=== PATIENT | male | born 1990 | race Caucasian/White ===

== ENCOUNTER → 2020-02-29 | Outpatient (REF) | payer OTHER ==
[2020-03-07 14:47] LABS: SEMEN APPEARANCE OPAQUE (OPAQUE); SEMEN VISCOSITY VISCOUS (LIQUID); SEMEN VOLUME 3.5 ml (2.0-5.0); SEMEN pH 8.5 (7.0-8.0)
[2020-03-07 14:48] LABS: WBC CONCENTRATION <=1 M/ml (<=1 M/ml)
== END ==
LOC: M LAB REF 14:41
PROVIDERS: ATTEND Obstetrics & Gynecology
DX: N46.11 Organic oligospermia (principal)

== ENCOUNTER 2020-04-01 23:59 | Emergency (ER) | payer OTHER, SELFPAY ==
[~2020-04-01] VITALS: Ht 180.3 cm; Wt 90.6 kg
[2020-04-02] MEDS ORDERED: IBUP-1022 PO (00:21)
[2020-04-02] MEDS ORDERED: PRED20TA PO (01:57)
[2020-04-02] MEDS ORDERED: ALBUTEROL 90 MCG/ACT 8GM HFA INHALER INH ONE (02:00)
[2020-04-02] MEDS ORDERED: predniSONE 20 MG TAB PO ONE (02:00)
--- NOTE | 2020-04-02 02:25 | REPVR ---
PROCEDURE INFORMATION: Exam: XR Chest, 2 Views Exam date and time: 04/02/2020 1:54 AM Age: 30 years old Clinical indication: Other: SOB; Additional info: Shortness of breath TECHNIQUE: Imaging protocol: XR of the chest Views: 2 views. COMPARISON: No relevant prior studies available. FINDINGS: Lungs: Unremarkable. No consolidation. Pleural space: Unremarkable. No pleural effusion. No pneumothorax. Heart/Mediastinum: Unremarkable. No cardiomegaly. Bones/joints: Unremarkable. IMPRESSION: Negative chest. Electronically signed by: Mukesh Del Valle On 04/02/2020 02:25:28 AM
[2020-04-02 03:14] VITALS: BP 128/63
== END 2020-04-02 03:22 | disposition home or self-care (01) ==
LOC: M ED 23:59
DX: B34.8 Other viral infections of unspecified site (principal); R06.02 Shortness of breath

== ENCOUNTER 2020-10-26 12:27 | Emergency (ER) | payer OTHER ==
[~2020-10-26] VITALS: Ht 180.3 cm; Wt 76.8 kg
[~2020-10-26 12:27] MED LIST: IBUP-1022 PO; PRED20TA PO
[2020-10-26 12:28] VITALS: BP 122/65
[2020-10-26] MEDS ORDERED: GABAPENTIN 300 MG CAP PO ONE (16:05)
[2020-10-26] MEDS ORDERED: IBUP80TA PO (16:08)
[2020-10-26] MEDS ORDERED: GABA-282 PO (16:08)
== END 2020-10-26 16:20 | disposition home or self-care (01) ==
LOC: M ED 12:27
DX: G89.29 Other chronic pain (principal); M54.5 Low back pain; M51.37 Other intervertebral disc degeneration, lumbosacral region; F41.9 Anxiety disorder, unspecified; Z79.899 Other long term (current) drug therapy

== ENCOUNTER → 2022-11-24 | Outpatient (CLI) | payer OTHER ==
[~2022-11-24] MED LIST changes: +GABA-282 PO; +IBUP80TA PO
== END ==
LOC: M PLAIMG 12:54
PROVIDERS: ATTEND Nurse Practitioner Family
DX: M54.16 Radiculopathy, lumbar region (principal)

== ENCOUNTER 2023-06-11 15:15 | Emergency (ER) | payer OTHER ==
[~2023-06-11] VITALS: Ht 180.3 cm; Wt 95.1 kg
[2023-06-11 15:16] VITALS: TEMP 98.7
[2023-06-11] MEDS: NS 1,000 ML IV ONE ×2 (15:40→15:43)
[2023-06-11 15:56] LABS: BASO % 0.5 % (0.0-1.0); EOS % 0.5 % (0.0-3.0); HEMATOCRIT 48.9 % (42.0-52.0); HEMOGLOBIN 17.2 g/dl (13.5-17.5); LYMPH # 1.4 10^3/uL (1.5-5.0); LYMPH % 16.6 % (24.0-44.0); MEAN CORPUSCULAR HEMOGLOBIN 30.8 pg (27.0-33.0); MEAN CORPUSCULAR HGB CONC 35.2 g/dl (32.0-36.5); MEAN CORPUSCULAR VOLUME 87.6 fl (80.0-96.0); MONO # 0.4 10^3/uL (0.0-0.8); MONO % 4.9 % (2.0-8.0); NEUTROPHILS # 6.4 10^3/uL (1.5-8.5); PLATELET COUNT, AUTOMATED 309 10^3/uL (150-450); RED BLOOD COUNT 5.58 10^6/uL (4.30-6.10); WHITE BLOOD COUNT 8.3 10^3/uL (4.0-10.0)
[2023-06-11 16:11] LABS: INR 1.02; PROTHROMBIN TIME 13.1 SECONDS (12.5-14.5)
[2023-06-11 16:23] LABS: CK-MB VALUE MASS < 1.0 NG/ML (<3.6)
[2023-06-11 16:25] LABS: CPK CREATINE PHOSPHOKINASE 123 U/L (46-171); MB/CK RELATIVE INDEX 0.81 (< OR =4)
[2023-06-11 16:28] LABS: THYROID STIMULATING HORMONE 0.391 uIU/ML (0.55-4.78)
[2023-06-11 16:55] LABS: ALBUMIN 4.4 G/DL (3.2-5.2); ALKALINE PHOSPHATASE 64 U/L (46-116); ALT/SGPT 73 U/L (7.0-40); AST/SGOT 27 U/L (<34); BILIRUBIN,DIRECT 0.3 MG/DL (<0.4); BLOOD UREA NITROGEN 16 MG/DL (9-23); CARBON DIOXIDE LEVEL 28 MMOL/L (20-31); CHLORIDE LEVEL 103 MMOL/L (98-107); CREATININE FOR GFR 1.07 MG/DL (0.70-1.30); GLOMERULAR FILTRATION RATE > 60.0 (>60); GLUCOSE, FASTING 100 MG/DL (60-100); MAGNESIUM LEVEL 1.8 MG/DL (1.8-2.4); POTASSIUM SERUM 3.7 MMOL/L (3.5-5.1); SODIUM LEVEL 137 MMOL/L (136-145); TOTAL PROTEIN 7.4 G/DL (5.7-8.2)
[2023-06-11] MEDS: ACETAMINOPHEN TAB 650MG DOSE (2X325MG) PO ONE (17:55)
[2023-06-11 18:17] LABS: CK-MB VALUE MASS < 1.0 NG/ML (<3.6)
[2023-06-11 18:19] LABS: CPK CREATINE PHOSPHOKINASE 111 U/L (46-171)
[2023-06-11 18:30] VITALS: BP 139/71
[2023-06-11 18:38] VITALS: O2SAT 98
== END 2023-06-11 18:55 | disposition home or self-care (01) ==
LOC: M ED 15:15
DX: R55 Syncope and collapse (principal); I45.10 Unspecified right bundle-branch block; I10 Essential (primary) hypertension; E78.5 Hyperlipidemia, unspecified

== ENCOUNTER 2023-08-25 18:45 | Emergency (ER) | payer OTHER ==
[~2023-08-25] VITALS: Ht 180.3 cm; Wt 95.9 kg
[2023-08-25] MEDS ORDERED: METO1TAB87 PO (18:52)
[2023-08-25 19:47] LABS: BASO % 0.4 % (0.0-1.0); EOS # 0.2 10^3/uL (0.0-0.5); EOS % 2.6 % (0.0-3.0); HEMATOCRIT 45.5 % (42.0-52.0); HEMOGLOBIN 15.8 g/dl (13.5-17.5); LYMPH # 1.9 10^3/uL (1.5-5.0); LYMPH % 21.3 % (24.0-44.0); MEAN CORPUSCULAR HEMOGLOBIN 31.3 pg (27.0-33.0); MEAN CORPUSCULAR HGB CONC 34.7 g/dl (32.0-36.5); MEAN CORPUSCULAR VOLUME 90.3 fl (80.0-96.0); MONO # 0.7 10^3/uL (0.0-0.8); MONO % 8.2 % (2.0-8.0); NEUTROPHILS % 66.9 % (36.0-66.0); PLATELET COUNT, AUTOMATED 272 10^3/uL (150-450); RED BLOOD COUNT 5.04 10^6/uL (4.30-6.10); WHITE BLOOD COUNT 8.9 10^3/uL (4.0-10.0)
[2023-08-25 20:25] LABS: BLOOD UREA NITROGEN 15 MG/DL (9-23); CALCIUM LEVEL 9.2 MG/DL (8.5-10.1); CARBON DIOXIDE LEVEL 30 MMOL/L (20-31); CHLORIDE LEVEL 104 MMOL/L (98-107); CREATININE FOR GFR 1.06 MG/DL (0.70-1.30); GLOMERULAR FILTRATION RATE > 60.0 (>60); GLUCOSE, FASTING 90 MG/DL (60-100); SODIUM LEVEL 139 MMOL/L (136-145)
[2023-08-25 21:53] VITALS: BP 124/73; TEMP 97.2; O2SAT 97
== END 2023-08-25 22:10 | disposition home or self-care (01) ==
LOC: M ED 18:45
DX: I80.02 Phlebitis and thrombophlebitis of superficial vessels of left lower extremity (principal); I10 Essential (primary) hypertension; Z79.899 Other long term (current) drug therapy

== ENCOUNTER 2023-09-24 22:08 | Emergency (ER) | payer OTHER ==
[~2023-09-24] VITALS: Ht 180.3 cm; Wt 93.2 kg
[~2023-09-24 22:08] MED LIST changes: +METO1TAB87 PO
[2023-09-24 22:50] LABS: BASO % 0.3 % (0.0-1.0); EOS % 0.2 % (0.0-3.0); HEMATOCRIT 46.3 % (42.0-52.0); HEMOGLOBIN 15.7 g/dl (13.5-17.5); LYMPH # 1.3 10^3/uL (1.5-5.0); LYMPH % 13.3 % (24.0-44.0); MEAN CORPUSCULAR HEMOGLOBIN 30.6 pg (27.0-33.0); MEAN CORPUSCULAR HGB CONC 33.9 g/dl (32.0-36.5); MEAN CORPUSCULAR VOLUME 90.3 fl (80.0-96.0); MONO # 0.5 10^3/uL (0.0-0.8); MONO % 5.5 % (2.0-8.0); NEUTROPHILS # 7.7 10^3/uL (1.5-8.5); NEUTROPHILS % 80.3 % (36.0-66.0); PLATELET COUNT, AUTOMATED 301 10^3/uL (150-450); RED BLOOD COUNT 5.13 10^6/uL (4.30-6.10); WHITE BLOOD COUNT 9.6 10^3/uL (4.0-10.0)
[2023-09-24 23:22] LABS: CK-MB VALUE MASS < 1.0 NG/ML (<3.6)
[2023-09-24] MEDS: NS 1,000 ML IV ONE (23:27)
[2023-09-24] MEDS ORDERED: ISOVUE-370 76% 100ML VIAL As Ordered ONE (23:34)
[2023-09-24 23:48] LABS: CPK CREATINE PHOSPHOKINASE 103 U/L (46-171); MB/CK RELATIVE INDEX 0.97 (< OR =4)
[2023-09-25 00:13] LABS: RSV AMPLIFICATION NEGATIVE (NEGATIVE)
[2023-09-25 00:43] LABS: BILIRUBIN,DIRECT 0.2 MG/DL (<0.4)
[2023-09-25 00:49] LABS: APPEARANCE, URINE CLEAR (CLEAR); BACTERIA, URINE AUTO NEGATIVE (NEGATIVE); BILIRUBIN, URINE AUTO NEGATIVE (NEGATIVE); BLOOD, URINE BLOOD NEGATIVE (NEGATIVE); COLOR, URINE YELLOW (YELLOW); GLUCOSE, URINE (UA) AUTO NEGATIVE (NEGATIVE); KETONE, URINE AUTO NEGATIVE (NEGATIVE); LEUKOCYTE ESTERASE, URINE AUTO NEGATIVE (NEGATIVE); MUCUS, URINE SMALL (NEGATIVE); NITRITE, URINE AUTO NEGATIVE (NEGATIVE); PROTEIN, URINE AUTO NEGATIVE (NEGATIVE); RBC, URINE AUTO 1 /HPF (0-3); SPECIFIC GRAVITY URINE AUTO 1.013 (1.002-1.035); SQUAMOUS EPITHELIAL CELL UR AU 0 /HPF (0-6); UROBILINOGEN, URINE AUTO 0.2 mg/dL (0.0-2.0); WBC, URINE AUTO 0 /HPF (0-3)
[2023-09-25 01:21] LABS: ALKALINE PHOSPHATASE 69 U/L (46-116); ALT/SGPT 53 U/L (7.0-40); AST/SGOT 25 U/L (<34); BILIRUBIN,TOTAL 0.6 MG/DL (0.3-1.2); TOTAL PROTEIN 6.5 G/DL (5.7-8.2)
[2023-09-25 01:22] LABS: ALBUMIN 3.5 G/DL (3.2-5.2)
[2023-09-25 01:49] VITALS: BP 117/63; TEMP 97.1; O2SAT 98
[2023-09-25 01:51] LABS: HEMOGLOBIN A1c 5.1 % (4.0-6.0)
== END 2023-09-25 02:29 | disposition home or self-care (01) ==
LOC: M ED 22:08
DX: R53.81 Other malaise (principal); I10 Essential (primary) hypertension; Z79.899 Other long term (current) drug therapy
CPT/HCPCS: 71275; 80047; 80076; 81001; 82550; 82553; 83036; 84484; 85025; 87631; 93005; 96360; 96361; 99284; Q9967

== ENCOUNTER 2023-12-10 14:09 | Emergency (ER) | payer OTHER ==
[~2023-12-10] VITALS: Ht 180.3 cm; Wt 91.9 kg
[2023-12-10 14:59] LABS: BASO % 0.5 % (0.0-1.0); EOS # 0.1 10^3/uL (0.0-0.5); EOS % 0.7 % (0.0-3.0); HEMATOCRIT 47.5 % (42.0-52.0); HEMOGLOBIN 16.4 g/dl (13.5-17.5); LYMPH # 1.6 10^3/uL (1.5-5.0); LYMPH % 17.9 % (24.0-44.0); MEAN CORPUSCULAR HEMOGLOBIN 30.8 pg (27.0-33.0); MEAN CORPUSCULAR HGB CONC 34.5 g/dl (32.0-36.5); MEAN CORPUSCULAR VOLUME 89.1 fl (80.0-96.0); MONO # 0.5 10^3/uL (0.0-0.8); MONO % 6.1 % (2.0-8.0); NEUTROPHILS # 6.4 10^3/uL (1.5-8.5); NEUTROPHILS % 74.2 % (36.0-66.0); PLATELET COUNT, AUTOMATED 289 10^3/uL (150-450); RED BLOOD COUNT 5.33 10^6/uL (4.30-6.10); WHITE BLOOD COUNT 8.7 10^3/uL (4.0-10.0)
[2023-12-10 15:19] LABS: BLOOD UREA NITROGEN 10 MG/DL (9-23); CALCIUM LEVEL 8.8 MG/DL (8.5-10.1); CARBON DIOXIDE LEVEL 29 MMOL/L (20-31); CHLORIDE LEVEL 105 MMOL/L (98-107); CREATININE FOR GFR 0.95 MG/DL (0.70-1.30); GLOMERULAR FILTRATION RATE > 60.0 (>60); GLUCOSE, FASTING 123 MG/DL (60-100); POTASSIUM SERUM 3.9 MMOL/L (3.5-5.1); SODIUM LEVEL 140 MMOL/L (136-145)
[2023-12-10 15:22] LABS: THYROID STIMULATING HORMONE 0.656 uIU/ML (0.55-4.78)
[2023-12-10 17:04] LABS: MAGNESIUM LEVEL 1.8 MG/DL (1.8-2.4)
[2023-12-10 18:17] VITALS: BP 122/71; TEMP 97.7; O2SAT 96
== END 2023-12-10 18:21 | disposition home or self-care (01) ==
LOC: M ED 14:09
DX: R55 Syncope and collapse (principal); R00.1 Bradycardia, unspecified; I10 Essential (primary) hypertension

== ENCOUNTER 2024-03-02 19:04 | Emergency (ER) | payer OTHER ==
[~2024-03-02] VITALS: Ht 180.3 cm; Wt 92.3 kg
[~2024-03-02 19:04] MED LIST changes: +GABA-1172 PO; -GABA-282 PO
[2024-03-02 19:06] VITALS: BP 171/81; TEMP 97.3; O2SAT 97
[2024-03-02 19:43] LABS: BASO # 0.1 10^3/uL (0.0-0.2); BASO % 0.6 % (0.0-1.0); EOS # 0.2 10^3/uL (0.0-0.5); EOS % 2.9 % (0.0-3.0); HEMATOCRIT 45.8 % (42.0-52.0); HEMOGLOBIN 15.8 g/dl (13.5-17.5); LYMPH # 2.2 10^3/uL (1.5-5.0); LYMPH % 29.1 % (24.0-44.0); MEAN CORPUSCULAR HEMOGLOBIN 30.7 pg (27.0-33.0); MEAN CORPUSCULAR HGB CONC 34.5 g/dl (32.0-36.5); MEAN CORPUSCULAR VOLUME 89.1 fl (80.0-96.0); MONO # 0.6 10^3/uL (0.0-0.8); MONO % 7.8 % (2.0-8.0); NEUTROPHILS # 4.6 10^3/uL (1.5-8.5); NEUTROPHILS % 59.1 % (36.0-66.0); PLATELET COUNT, AUTOMATED 289 10^3/uL (150-450); RED BLOOD COUNT 5.14 10^6/uL (4.30-6.10); WHITE BLOOD COUNT 7.7 10^3/uL (4.0-10.0)
[2024-03-02 20:07] LABS: BLOOD UREA NITROGEN 12 MG/DL (9-23); CALCIUM LEVEL 9.2 MG/DL (8.5-10.1); CARBON DIOXIDE LEVEL 26 MMOL/L (20-31); CHLORIDE LEVEL 105 MMOL/L (98-107); CREATININE FOR GFR 0.84 MG/DL (0.70-1.30); GLOMERULAR FILTRATION RATE > 60.0 (>60); GLUCOSE, FASTING 125 MG/DL (60-100); POTASSIUM SERUM 3.8 MMOL/L (3.5-5.1); SODIUM LEVEL 140 MMOL/L (136-145)
== END 2024-03-02 20:48 | disposition home or self-care (01) ==
LOC: M ED 19:04
DX: R05.9 Cough, unspecified (principal); R06.02 Shortness of breath; I10 Essential (primary) hypertension; M54.50 Low back pain, unspecified; Z86.718 Personal history of other venous thrombosis and embolism

== ENCOUNTER 2024-03-13 01:07 | Emergency (ER) | payer OTHER ==
[~2024-03-13] VITALS: Ht 180.3 cm; Wt 92.3 kg
[2024-03-13 02:37] LABS: BASO # 0.1 10^3/uL (0.0-0.2); BASO % 0.7 % (0.0-1.0); EOS # 0.3 10^3/uL (0.0-0.5); EOS % 2.9 % (0.0-3.0); HEMATOCRIT 45.5 % (42.0-52.0); HEMOGLOBIN 15.9 g/dl (13.5-17.5); LYMPH # 2.4 10^3/uL (1.5-5.0); LYMPH % 27.6 % (24.0-44.0); MEAN CORPUSCULAR HEMOGLOBIN 30.8 pg (27.0-33.0); MEAN CORPUSCULAR HGB CONC 34.9 g/dl (32.0-36.5); MONO # 0.8 10^3/uL (0.0-0.8); MONO % 8.8 % (2.0-8.0); NEUTROPHILS # 5.2 10^3/uL (1.5-8.5); NEUTROPHILS % 59.7 % (36.0-66.0); PLATELET COUNT, AUTOMATED 277 10^3/uL (150-450); RED BLOOD COUNT 5.17 10^6/uL (4.30-6.10); WHITE BLOOD COUNT 8.7 10^3/uL (4.0-10.0)
[2024-03-13 02:59] LABS: BLOOD UREA NITROGEN 14 MG/DL (9-23); CALCIUM LEVEL 9.1 MG/DL (8.5-10.1); CARBON DIOXIDE LEVEL 28 MMOL/L (20-31); CHLORIDE LEVEL 105 MMOL/L (98-107); CK-MB VALUE MASS < 1.0 NG/ML (<3.6); CPK CREATINE PHOSPHOKINASE 107 U/L (46-171); CREATININE FOR GFR 0.85 MG/DL (0.70-1.30); GLOMERULAR FILTRATION RATE > 60.0 (>60); GLUCOSE, FASTING 97 MG/DL (60-100); MB/CK RELATIVE INDEX 0.93 (< OR =4); POTASSIUM SERUM 4.1 MMOL/L (3.5-5.1); SODIUM LEVEL 140 MMOL/L (136-145)
[2024-03-13] MEDS ORDERED: ISOVUE-370 76% 100ML VIAL As Ordered ONE (05:28)
[2024-03-13 05:37] LABS: CK-MB VALUE MASS < 1.0 NG/ML (<3.6)
[2024-03-13 05:38] LABS: CPK CREATINE PHOSPHOKINASE 102 U/L (46-171); MB/CK RELATIVE INDEX 0.98 (< OR =4)
[2024-03-13] MEDS ORDERED: ZINC100T3 PO (08:20)
[2024-03-13] MEDS ORDERED: HOME MED LIST COMPLETE! XX SCH (08:20)
[2024-03-13] MEDS ORDERED: CHOL25TA2 PO (08:20)
[2024-03-13] MEDS ORDERED: VITA-158 PO (08:20)
[2024-03-13] MEDS ORDERED: OMEG12003 PO (08:20)
[2024-03-13] MEDS ORDERED: MAGN400T2 PO (08:20)
[2024-03-13] MEDS ORDERED: HOLTER MONITOR XX (10:53)
[2024-03-13 11:00] VITALS: BP 114/66; TEMP 98.2; O2SAT 96
== END 2024-03-13 11:14 | disposition home or self-care (01) ==
LOC: M ED 01:07
DX: R55 Syncope and collapse (principal); J98.11 Atelectasis; M25.78 Osteophyte, vertebrae; M48.07 Spinal stenosis, lumbosacral region; Z79.899 Other long term (current) drug therapy
CPT/HCPCS: 36415; 70450; 71046; 71275; 72125; 80048; 82550; 82553; 83735; 84484; 85025; 93005; 99285; Q9967